=== PATIENT | male | born 1970 | race Caucasian/White ===

== ENCOUNTER 2023-07-02 06:36 | Day surgery (SDC) | payer BC ==
[2023-07-02] MEDS ORDERED: Lactated Ringers 1,000 ML IV SCH (07:00)
[2023-07-02] MEDS ORDERED: Propofol 200 MG/20 ML SDV ONE ×2 (08:02→08:09)
[2023-07-02] MEDS ORDERED: fentaNYL 100 MCG/2 ML SDV ONE (08:02)
[2023-07-02] MEDS ORDERED: Simethicone Drops 40 MG/0.6 ML 30 ML Bottle ONE (08:15)
== END 2023-07-02 10:20 | disposition home or self-care (01) ==
LOC: VM.SDS 06:36
PROVIDERS: ATTEND Student in an Organized Health Care Education/Training Program
DX: C18.7 Malignant neoplasm of sigmoid colon (principal); D12.0 Benign neoplasm of cecum; D12.2 Benign neoplasm of ascending colon; D12.3 Benign neoplasm of transverse colon; K63.5 Polyp of colon; D12.5 Benign neoplasm of sigmoid colon; E11.9 Type 2 diabetes mellitus without complications; C67.9 Malignant neoplasm of bladder, unspecified; G47.33 Obstructive sleep apnea (adult) (pediatric); E78.2 Mixed hyperlipidemia; Z79.82 Long term (current) use of aspirin; Z79.84 Long term (current) use of oral hypoglycemic drugs; Z79.899 Other long term (current) drug therapy; Z87.891 Personal history of nicotine dependence
CPT/HCPCS: 00812; 82947; A9270-GY; J2704; J3010; J7120

== ENCOUNTER 2024-08-10 07:07 | Day surgery (SDC) | payer BC ==
[2024-08-10] MEDS: Lactated Ringers 1,000 ML IV SCH (07:26)
[2024-08-10] MEDS ORDERED: fentaNYL 100 MCG/2 ML SDV ONE (08:26)
[2024-08-10] MEDS ORDERED: Propofol 200 MG/20 ML SDV ONE (08:26)
[2024-08-10] MEDS ORDERED: Sodium Chloride 0.9% 10 ML Syringe FLUSH PRN (10:09)
== END 2024-08-10 10:30 | disposition home or self-care (01) ==
LOC: VM.SDS 07:07
PROVIDERS: ATTEND Family Medicine
DX: Z12.11 Encounter for screening for malignant neoplasm of colon (principal); D12.6 Benign neoplasm of colon, unspecified; K63.5 Polyp of colon; E11.9 Type 2 diabetes mellitus without complications; E78.2 Mixed hyperlipidemia; Z68.41 Body mass index [BMI] 40.0-44.9, adult; Z79.84 Long term (current) use of oral hypoglycemic drugs; Z79.899 Other long term (current) drug therapy
CPT/HCPCS: 00811; 82947; J2704; J3010; J7120